=== PATIENT | female | born 1970 | race Caucasian/White ===

== ENCOUNTER 2016-03-13 18:58 | Emergency (ER) | payer BC ==
--- NOTE | 2016-03-13 19:34 | DIRPT ---
CLINICAL DATA: Slipped on ice on front porch and fell last night. Medial knee pain. EXAM: LEFT KNEE - COMPLETE 4+ VIEW COMPARISON: None. FINDINGS: There is no evidence of fracture, dislocation, or joint effusion. There is no evidence of arthropathy or other focal bone abnormality. Soft tissues are unremarkable. IMPRESSION: Negative. Electronically Signed By: Ash Clemente M.D. On: 03/13/2016 19:32
--- NOTE | 2016-03-13 19:34 | DIRPT ---
CLINICAL DATA: Slipped and fell on front porch last night. Lateral left ankle pain. EXAM: LEFT ANKLE COMPLETE - 3+ VIEW COMPARISON: None. FINDINGS: There is an oblique fracture of the distal fibula extending from the meta diaphysis to the anterior metaphysis. There is no significant fracture displacement or comminution. No other fractures. The ankle mortise is normally spaced and aligned. There is soft tissue swelling which predominates laterally. IMPRESSION: Nondisplaced, non comminuted fracture of the distal fibula. Normally aligned ankle mortise. Electronically Signed By: Ash Clemente M.D. On: 03/13/2016 19:31
--- NOTE | 2016-03-13 19:35 | DIRPT ---
CLINICAL DATA: Slipped and fell on ice on the front porch last night. Left leg pain. EXAM: LEFT TIBIA AND FIBULA - 2 VIEW COMPARISON: None. FINDINGS: Fracture of the distal fibula, nondisplaced. Please refer to the ankle radiographs for additional description. No other fractures. Knee and ankle joints are normally spaced and aligned. There is soft tissue swelling surrounding the ankle most evident laterally. IMPRESSION: 1. Nondisplaced fracture of the distal fibula. 2. No other fractures. No dislocation. Electronically Signed By: Ash Clemente M.D. On: 03/13/2016 19:33
[2016-03-13] MEDS ORDERED: OXYCODONE HCL 5 MG TABLET PO ONE (20:00)
[2016-03-13 20:01] VITALS: TEMP 98.6; BMI 52.2
--- NOTE | 2016-03-13 20:15 | EDPRACDOC ---
- General Information Chief Complaint: Ankle Pain Stated Complaint: ANKLE PAIN Time Seen by Provider: 03/13/16 20:12 Information Source: Patient Mode of Arrival: Car Home Medications: Home Medications Hydrochlorothiazide 25 mg PO QAM 03/26/13 Hydrocodone Bit/Acetaminophen [Hydrocodon-Acetaminophen 5-325] 1 tab PO Q4H PRN #30 tab 03/26/13 Sertraline HCl [Zoloft] 50 mg PO DAILY 03/26/13 Ibuprofen [Advil] 400 - 600 mg PO Q6H PRN 04/04/13 Oxycodone Immediate Release [Oxycodone Immediate Release Tablet] 1 tab PO Q6H PRN 04/05/13 Hydrocodone Bit/Acetaminophen [Hydrocodon-Acetaminophen 5-325] 1 tab PO Q6H PRN #20 tab 03/13/16 Allergies/Adverse Reactions: Allergies Allergy/AdvReac Type Severity Reaction Status Date / Time No Known Allergies Allergy Verified 04/05/13 11:33 - History of Present Illness Onset: last night HPI: SLIPPED FELL HURT LEFT ANKLE. C/O PAIN AND SWELLING TO LEFT LATERAL ANKLE AND ALSO C/O KNEE PAIN Mechanism: Reports: Unknown Circumstances: Reports: Fall Able to Bear Weight: Limited Pain Severity: Reports: Moderate Associated Signs & Symptoms: Reports: Swelling ED Past Medical History - History Reviewed Yes Nurses notes reviewed and agree except as marked Travel Outside of [place] in the Last 3 Months?: No - Patient Medical History Cardiac History: Reports: Hypertension Psychological History: Denies: Depression Systemic History: Reports: Cancer - Family Medical History Denies: Hypertension, Diabetes, Stroke, Cardiac Disorders. Comment Only: Cancer (MOTHER, OVARIAN) - Social Medical History Smoking Status: Never smoker ETOH: None Substance Abuse: None Lives With: Other Lives In: Home EDM Review of Systems - Review of Systems ROS Negative Except as Marked: Yes All systems reviewed and were negative except as marked Constitutional: No Symptoms Reported. negative: Fever, Chills, Weakness, Fatigue, Loss of Appetite Eyes: No Symptoms Reported. negative: Redness, Blurred Vision, Double Vision, Discharge, Pain, Light Sensitive, Photophobia Ears: No Symptoms Reported. negative: Pain, Hearing Loss, Drainage, Ear Pulling Throat: No Symptoms Reported. negative: Pain, Swelling Nose: No Symptoms Reported. negative: Congestion, Bleeding, Discharge, Injection, Swelling, Deformity, Ecchymosis, Tender, Abrasion, Laceration Mouth: No Symptoms Reported. negative: Pain, Drooling Respiratory: No Symptoms Reported. negative: Cough, Brassy Cough, Barky Cough, Shortness of Breath, Wheezing, Hemoptysis Cardiovascular: No Symptoms Reported. negative: Chest Pain, Palpitations, Syncope, Edema, Orthopnea, PND, Skin Mottling, Cyanosis Gastrointestinal: No Symptoms Reported. negative: Pain, Constipation, Nausea, Vomiting, Diarrhea, Melena, Formula Intolerance Genitourinary: No Symptoms Reported. negative: Dysuria, Hematuria, Frequency, Discharge, Bleeding, Testicular Pain, Neurological: No Symptoms Reported. negative: Headache, Dizziness, Seizure, Numbness, Weakness, Speech Difficulty, Gait Difficulty Musculoskeletal: Ankle (LT). negative: Arm, Back, Chestwall, Elbow, Forearm, Femur, Foot, Hand, Hip, Knee, Leg, Neck, Pelvis, Ribs, Shoulder, Wrist Integumentary: No Symptoms Reported. negative: Itching, Rash, Bruising, Wound Allergic/Immunologic: No Symptoms Reported. negative: Hives, Itching Hematologic: No Symptoms Reported. negative: Lymphadenopathy, Easy Bruising, Easy Bleeding Endocrine: No Symptoms Reported. negative: Weight Gain, Weight Loss Psychiatric: No Symptoms Reported. negative: Anxiety, Depression, Hallucinations, Insomnia, Suicidal - Physical Exam Constitutional: Alert (Awake), No apparent distress Oriented to: Time, Person, Place Last recorded Vital Signs: Last Vital Signs Temp 98.6 F 03/13/16 19:59 Pulse 102 03/13/16 19:59 Resp 18 03/13/16 19:59 BP 215/107 H 03/13/16 19:59 Pulse Ox 96 03/13/16 19:59 Oxygen Pulse Oxygen Saturation 96 O2 Device Room Air Oxygen Flow Rate Fraction of Inspired Oxygen ( FIO2) - HEENT Head: Normal ( normocephalic) Eye Exam: Normal (PERRL, EOMI, Sclera white) Oropharynx: Normal (Pharynx:Moist without exudate,Gums-no swelling) Tympanic Membrane: Normal ENT EAC: Normal TMJ: Normal Nose: No Symptoms Reported (septum midline) Neck: Normal (FROM, trachea at midline) - Respiratory/Cardiovascular Respiratory: Normal - CTA (BBS clear to auscultation without adventitious sounds ) Cardiovascular: Normal (RRR without murmur, gallop or rub) - GI Auscultation: Normal (NABS) Palpation: Normal (Soft,No rebound or guarding, non distended) Tenderness: Non tender Bustamante's Sign: Negative - Musculoskeletal Back: Normal (Non-Tender) Extremities: Normal (Normal tone, Pulses 2+ No cyanosis or edema, FROM) - Integumentary Skin: Normal, Warm, Dry Lymphatics: Normal (no adenopathy) - Neurologic Memory Impaired: Normal Motor Function: Normal (Normal tone, Pulses 2+ No cyanosis or edema, FROM) Cranial Nerve: Normal (CN II-X11 intact sensation, strength 5/5) Cerebellar: Normal Mood Description: Normal Perception: Normal ED Ankle Problem Phys Exam - Musculoskeletal Ankle: Swelling (LT LATERAL), Limited ROM, Mild Tenderness Achilles Tendon: Normal Knee: Normal Lower Leg: Mild Tenderness (DISTAL LEFT LATERAL ANKLE) Foot: Swelling (LEFT LATERAL), Limited ROM, Mild Tenderness Distal Function/Circulation: Normal - Integumentary Skin: Normal Lymphatics: Normal ED Procedures - Splinting ANKLE Location: LEFT Hand-Made Type: orthoglass Splint: POST SHORT LEG AND STIRRUP Pre-Proc Neuro Vasc Exam: normal Post-Proc Neuro Vasc Exam: normal Other Devices: Crutches - Differential Diagnosis Contusion, Fibula Fracture, Fracture, Sprain, Tibia Fracture - Diagnostic Imaging ANKLE Image interpreted by: Radiologist IMPRESSION: Nondisplaced, non comminuted fracture of the distal fibula. Normally aligned ankle mortise. TIB/FIB Image interpreted by: Radiologist IMPRESSION: 1. Nondisplaced fracture of the distal fibula. 2. No other fractures. No dislocation. KNEE Image interpreted by: Radiologist IMPRESSION: Negative. - Departure Disposition: Home Condition: Stable Final Diagnosis: Left fibular fracture Qualifiers: Encounter type: initial encounter Fibula location: lateral malleolus Fracture type: closed Fracture alignment: nondisplaced Qualified Code(s): S82.65XA - Nondisplaced fracture of lateral malleolus of left fibula, initial encounter for closed fracture Instructions: RICE: Routine Care for Injuries, Ankle Fracture (ED) Education/Counseling Given To: Patient Education/Counseling Given Regarding: Diagnosis, Treatment, Prognosis, Follow Up Referrals: None,No Provider [Primary Care Provider] - One Week Burt James MD [Staff Physician] - One Week Prescriptions: Hydrocodone Bit/Acetaminophen [Hydrocodon-Acetaminophen 5-325] 1 tab PO Q6H PRN #20 tab PRN Reason: Pain Additional Instructions: RICE. RETURN FOR WORSE OR DIFFERENT SYMPTOMS.
[2016-03-13 20:51] VITALS: BP 164/93; PULSE 101
== END 2016-03-13 20:53 | disposition home or self-care (01) ==
LOC: EDMC 18:58
DX: S82.65XA Nondisplaced fracture of lateral malleolus of left fibula, initial encounter for closed fracture (principal); W01.0XXA Fall on same level from slipping, tripping and stumbling without subsequent striking against object, initial encounter; I10 Essential (primary) hypertension; Z79.899 Other long term (current) drug therapy
CPT/HCPCS: 29515; 73564; 73590; 73610; 99283; J3490